=== PATIENT | female | born 1965 | race Caucasian/White ===

== ENCOUNTER 2016-03-31 19:55 | Inpatient (IN) | payer MEDICARE, OTHER ==
[2016-03-31 20:26] VITALS: BP 136/94
[2016-03-31] MEDS: Sodium Chloride 0.9% 1,000 ML IV SCH (21:55)
[2016-03-31] MEDS: HYDROmorphone 1 mg/mL 1mL Syr IVP PRN (21:55)
[2016-04-01] MEDS: HYDROmorphone 1 mg/mL 1mL Syr IVP PRN ×4 (06:18→20:43)
[2016-04-01 07:08] LABS: % BASOPHILS 0.4 % (0.0-2.0); % EOSINOPHILS 0.5 % (0.0-5.0); % LYMPHOCYTES 21.1 % (20.0-50.0); % MONOCYTES 2.6 % (2.0-10.0); % NEUTROPHILS 75.4 % (40.0-80.0); HEMATOCRIT 39.2 % (35.0-45.0); HEMOGLOBIN 13.3 gm/dL (11.7-15.5); MEAN CELL VOLUME 82.9 fl (81-100); MEAN CORPUSCULAR HEMOGLOBIN 28.2 pg (27.0-31.0); MEAN PLATELET VOLUME 8.3 fl; PLATELET COUNT 250 Th/cmm (150-400); RED BLOOD COUNT 4.73 Mil/cmm (3.80-5.10); RED CELL DISTRIBUTION WIDTH 12.9 % (11.5-20.0); WHITE BLOOD COUNT 14.7 Th/cmm (4.8-10.8)
[2016-04-01 07:25] LABS: INR 1.05 (0.5-1.4); PROTHROMBIN TIME (TEST) 10.4 SECONDS (9.5-11.5)
[2016-04-01 07:34] LABS: ALB/GLOB RATIO 1.1 (1.0-1.8); ALKALINE PHOSPHATASE 167 U/L (34-104); ANION GAP 11.7 (7.0-16.0); BILIRUBIN,TOTAL 0.6 mg/dL (0.3-1.0); BUN - UREA NITROGEN 12 mg/dL (7-25); BUN/CREATININE RATIO 17.1; CALCIUM SERUM 8.5 mg/dL (8.6-10.3); CARBON DIOXIDE 27.6 mEq/L (21.0-31.0); CHLORIDE 99 mEq/L (98-107); CREATININE - SERUM 0.7 mg/dL (0.6-1.2); GLUCOSE 169 mg/dL (70-105); POTASSIUM SERUM 3.3 mEq/L (3.5-5.1); SGOT 137 U/L (13-39); SGPT/ALT 129 U/L (7-52); SODIUM SERUM 135 mEq/L (136-145)
[2016-04-01] MEDS: Sodium Chloride 0.9% 1,000 ML IV SCH ×2 (08:27→21:30)
[2016-04-01] MEDS ORDERED: Influenza Vaccine 0.5 mL Syr IM ONE (09:00)
--- NOTE | 2016-04-01 09:00 | General Progress Note ---
Subjective - Review of Systems Service Date: 04/01/16 Subjective: I have pain Objective - Results Result Diagrams: 04/01/16 06:50 04/01/16 06:50 Recent Labs: Laboratory Last Values WBC 14.7 Th/cmm (4.8-10.8) H 04/01/16 06:50 RBC 4.73 Mil/cmm (3.80-5.10) 04/01/16 06:50 Hgb 13.3 gm/dL (11.7-15.5) 04/01/16 06:50 Hct 39.2 % (35.0-45.0) 04/01/16 06:50 MCV 82.9 fl (81-100) 04/01/16 06:50 MCH 28.2 pg (27.0-31.0) 04/01/16 06:50 MCHC Differential 34.0 pg (28.0-36.0) 04/01/16 06:50 RDW 12.9 % (11.5-20.0) 04/01/16 06:50 Plt Count 250 Th/cmm (150-400) 04/01/16 06:50 MPV 8.3 fl 04/01/16 06:50 Neutrophils % 75.4 % (40.0-80.0) 04/01/16 06:50 Lymphocytes % 21.1 % (20.0-50.0) 04/01/16 06:50 Monocytes % 2.6 % (2.0-10.0) 04/01/16 06:50 Eosinophils % 0.5 % (0.0-5.0) 04/01/16 06:50 Basophils % 0.4 % (0.0-2.0) 04/01/16 06:50 PT 10.4 SECONDS (9.5-11.5) 04/01/16 06:50 INR 1.05 (0.5-1.4) 04/01/16 06:50 PTT (Actin FS) 29.2 SECONDS (26.0-38.0) 04/01/16 06:50 Sodium 135 mEq/L (136-145) L 04/01/16 06:50 Potassium 3.3 mEq/L (3.5-5.1) L 04/01/16 06:50 Chloride 99 mEq/L (98-107) 04/01/16 06:50 Carbon Dioxide 27.6 mEq/L (21.0-31.0) 04/01/16 06:50 Anion Gap 11.7 (7.0-16.0) 04/01/16 06:50 BUN 12 mg/dL (7-25) 04/01/16 06:50 Creatinine 0.7 mg/dL (0.6-1.2) 04/01/16 06:50 Est GFR ( Amer) > 60.0 ml/min 04/01/16 06:50 Est GFR (Non-Af Amer) > 60.0 ml/min 04/01/16 06:50 BUN/Creatinine Ratio 17.1 04/01/16 06:50 Glucose 169 mg/dL (70-105) H 04/01/16 06:50 POC Glucose 184 MG/DL (70 - 105) H 04/01/16 07:25 Calcium 8.5 mg/dL (8.6-10.3) L 04/01/16 06:50 Total Bilirubin 0.6 mg/dL (0.3-1.0) 04/01/16 06:50 AST 137 U/L (13-39) H 04/01/16 06:50 ALT 129 U/L (7-52) H 04/01/16 06:50 Alkaline Phosphatase 167 U/L (34-104) H 04/01/16 06:50 Total Protein 6.9 gm/dL (6.0-8.3) 04/01/16 06:50 Albumin 3.6 gm/dL (3.7-5.3) L 04/01/16 06:50 Globulin 3.3 gm/dL 04/01/16 06:50 Albumin/Globulin Ratio 1.1 (1.0-1.8) 04/01/16 06:50 Amylase 10 U/L (29-103) L 04/01/16 06:50 Lipase 20 U/L (11-82) 04/01/16 06:50 - Physical Exam Vitals and I&O: Vital Signs Temp 97.2 F 03/31/16 20:30 Pulse 94 03/31/16 20:30 Resp 20 03/31/16 20:30 BP 130/100 03/31/16 20:30 Pulse Ox 97 03/31/16 20:30 Intake & Output 03/31/16 04/01/16 04/01/16 18:59 06:59 18:59 Intake Total 50 Balance 50 Weight (lbs) 136.078 kg Intake: Intake, IV Amount 50 cefTRIAXone 1 gm In 50 Dextrose 5% 50 ml @ 100 mls/hr IV Q24H [facility] Rx#: [id number] Active Medications: Current Medications Hydromorphone HCl (Dilaudid) 1 mg IVP Q4HR PRN PRN Reason: Pain (Severe) Stop: 05/30/16 20:44 Last Admin: 04/01/16 06:18 Dose: 1 mg Sodium Chloride (Nacl 0.9%) 1,000 mls @ 100 mls/hr IV .Q10H [facility] Stop: 05/30/16 20:44 Last Admin: 04/01/16 08:27 Dose: Not Given Ceftriaxone Sodium 1 gm/ (Dextrose) 50 mls @ 100 mls/hr IV Q24H [facility] Stop: 05/30/16 21:29 Last Infusion: 03/31/16 23:53 Dose: Infused Influenza Virus Vaccine (Fluarix) 0.5 ml IM .ONCE ONE Stop: 04/01/16 09:01 General: Alert, Oriented x3, No acute distress HEENT: Atraumatic Neck: Supple Cardiovascular: Regular rate Lungs: Clear to auscultation Abdomen: Bowel sounds, Tender, Other (Pain in upper right quadrant) Neurological: Normal gait Skin: Other (Warm and dry) Psych/Mental Status: Mental status NL Assessment/Plan - Assessment Assessment: Patient is awake, alert, calm, referring pain in right upper abdomen. - Plan Plan: Patient is scheduled for ERCP today. Will continue monitoring.
--- NOTE | 2016-04-01 10:23 | History & Physical ---
CHIEF COMPLAINT: Left upper abdominal pain. HISTORY OF PRESENT ILLNESS: This is the case of a 50-year-old white female who reported yesterday she woke up with intense pain in the abdomen, right upper quadrant. Due to that, the patient went to [facility], and the patient was transferred to this hospital in order to continue treatment. SOCIAL HISTORY: The patient lives at home with parents. She denies use of alcohol or drugs, no smoking. PAST MEDICAL HISTORY: The patient referred she has depression. PAST SURGICAL HISTORY: The patient referred that she has had multiple surgeries, gastric bypass 7 years ago, cholecystectomy 5 years ago, and they had to put a tube for ____ in order to drainage to ____. Tube was taken off 6 months ago. The patient had 3 C-sections and she had an abdominal surgery 4 years ago secondary to repair problems from cholecystectomy. FAMILY HISTORY: Cancer in both father and mother. MEDICATIONS: Cymbalta. ALLERGIES: THE PATIENT REFERRED BEING ALLERGIC TO SULFA. REVIEW OF SYSTEMS: LUNGS: The patient denies shortness of breath. HEART: The patient denies chest pain. ABDOMEN: The patient referred upper right abdominal pain. EXTREMITIES: No edema. PHYSICAL EXAMINATION: GENERAL: Does reveal a fairly nourished and developed white female, awake, alert, in no acute distress at this moment. HEENT: Head is normocephalic and atraumatic. EYES: Pupils are reactive to light. Nose: No evidence of nasal obstruction. Ears: No evidence of any discharge. Mouth: Fairly ____. LUNGS: Bilateral air entry. No wheezing or crackles. HEART: Regular rate and rhythm. ABDOMEN: Soft and tender on palpation in right upper quadrant. Bowel sounds present. EXTREMITIES: No edema. Full movement of all extremities. NEUROLOGICAL: The patient is awake, alert, in no acute distress. Nerves 2-12 grossly intact. No neurological deficit at this moment. IMPRESSION: 1. Upper abdominal pain. 2. Obesity. 3. Depression. PLAN: 1. The patient will be admitted in medical surgical floor. 2. Consult with GI, Dr. Meek, for possible ERCP. 3. IV normal saline, n.p.o. 4. Continue home medications. 5. CBC, CMP at a.m. JOB# [id number]
[2016-04-01 10:41] LABS: URINE BILIRUBIN SMALL (NEGATIVE); URINE BLOOD TRACE (NEGATIVE); URINE COLOR YELLOW; URINE GLUCOSE (UA) NEGATIVE (NEGATIVE); URINE KETONE TRACE mg/dL (NEGATIVE); URINE PH 6.5; URINE PROTEIN 100 mg/dL (NEGATIVE); URINE UROBILINOGEN 0.2 E.U./dL (0.2 - 1.0)
[2016-04-01 10:46] LABS: URINE EPITHELIAL CELLS MODERATE /lpf (FEW); URINE RBC 0-2 /hpf (0-5); URINE WBC 0-2 /hpf (0-5)
[2016-04-01 10:47] LABS: URINE BACTERIA FEW /hpf (NONE SEEN)
--- NOTE | 2016-04-01 11:09 | Diagnostic Imaging Report ---
Abdominal ultrasound HISTORY: Pain The exam is limited due to patient size, body habitus, and bowel gas. The liver exhibits a homogeneous parenchyma. No focal lesions. The gallbladder is not seen consistent with the patient's surgical history. No biliary dilatation. No abnormality seen in the region of the pancreas. The kidneys appear normal bilaterally. The spleen is normal in size. No other retroperitoneal or intra-abdominal abnormalities. IMPRESSION: 1. Nonvisualization of the gallbladder consistent with patient's surgical history 2. No other abnormalities
[2016-04-01] MEDS ORDERED: VTE Chemical Prophylaxis Screen/Admission MC PRN (17:14)
--- NOTE | 2016-04-01 21:31 | Admit Criteria Form ---
Admit Criteria Forms - Admit Criteria Diagnosis: ABDOMINAL PAIN Clinical Indications for Admission to Inpatient Care (Place 'X' for any and all applicable criteria): Admission is indicated for ANY ONE of the following(1)(2)(3)(4)(5): [ X]I. Inpatient admission required rather than observation care (Also use Abdominal Pain: Observation Care, as appropriate) because of ANY ONE of the following: [ ]a) Severe pain requiring acute inpatient management [ ]b) Identification of etiology/finding that requires inpatient care (eg, aortic dissection, free air) [ ]c) Absent bowel sounds with complete ileus(6) [ ]d) Suspected toxic megacolon [ ]e) Severe electrolyte abnormalities requiring inpatient care [ ]f) High fever or infection requiring inpatient admission as indicated by ANY ONE of following(7)(8): [ ] i) Appropriate outpatient or observational care antimicrobial treatment unavailable, not effective, or not feasible [ ] ii) Documented bacteremia [ ] iii) Temperature > 104.9 degrees F (oral) [ ] iv) T >103.1 F (oral) or < 96.8 F(rectal) that does not respond to all emergency treatment measures [ ]g) Signs of intestinal obstruction [B] [ ]h) Hemodynamic instability [ ]i) IV fluid to replace significant ongoing losses (greater than 3 L/m2 per day) (12)(13) [ ]j) Percutaneous or open drainage (eg, abscess, biliary tract ) procedures [ ]k) Parenteral nutrition regimen that must be implemented on inpatient basis [ X]l) Other condition,treatment or monitoring requiring inpatient admission. [ ]II. Peritoneal signs present [ ]III. Surgery needed that cannot be performed on an ambulatory basis. [ ]IV. Evaluation requires patient to not eat or drink for extended period ( eg, more than 24 hours). [ ]V. Contraindications and/or Inappropriate clinical situations for Observational Care in patients with abdominal pain, when ANY ONE of the following is required: [ ]a) Thorough evaluation is required to prevent catastrophic events due to delays in diagnosing (e.g.Mesenteric ischemia) 1,3 [ ]b) Patient with severe pathology or with chronic symptoms unlikely to improve in the ED stay (3) [ ]. General contraindications and/or Inappropriate clinical situations for Observational Care in patients with abdominal pain, when ANY ONE of the following is required: [ ]a) Prediction of prolongation of LOS based on ANY ONE of the following may be considered as a contraindication for observational care 2, 3, 4, 5, 6, 7, 8, 9, 10, 11 [ ]i) Age > 65 yrs. [ ]ii) Patient arriving by ambulance [ ]iii) Patient with high acuity [ ]iv) Patient requiring vital sign monitoring [ ]v) Patient on IV medication [ ]b) Systolic blood pressures 180mmHg 3,12 [ ]c) Patient with altered mental status including delirium and other alteration of consciousness, (3) [ ]d) Patient whose discharge disposition will be to a care home home or rehabilitation home should not be managed in Emergency Department Observation Unit. CMS rule requires 3 days hospital stay before such placement.3,13 [ ]e) Patient with failure to thrive due to broad array of etiologies 3,16,17 [ ]f) Inability to ambulate 3,14 Extended stay beyond goal length of stay may be needed for(2)(3): [ ]a) Persistent abdominal pain with suspected intra-abdominal process [ ]b) Diagnosed condition requiring continued stay (e.g., pancreatitis, complicated diverticulitis) [ ]c) Surgery (e.g., colectomy) The original [employer] content created by [employer] has been revised. The portions of the content which have been revised are identified through the use of italic text or in bold, and [facility] has neither reviewed nor approved the modified material.All other unmodified content is copyright [facility]. Please see references footnoted in the original [facility] edition 2016
--- NOTE | 2016-04-01 23:49 | Consultation ---
INPATIENT GI CONSULT REFERRING PHYSICIAN: Dr. Anguiano. REASON FOR CONSULTATION: Abdominal pain. HISTORY OF PRESENT ILLNESS: This is a 50-year-old female with abdominal pain of 1-day duration in the right upper quadrant associated with nausea and vomiting, but no hematemesis or coffee-ground emesis. Denies having any melena or hematochezia. She has had this pain before several years ago. Reminiscence of her gallstones required a gallbladder surgery. PAST MEDICAL HISTORY: Include gallstones. PAST SURGICAL HISTORY: Cholecystectomy and . FAMILY HISTORY: Her father had stomach cancer. SOCIAL HISTORY: She denies tobacco or IV drug usage. She drinks alcohol socially, but not heavy. ALLERGIES: SULFA. CURRENT MEDICATIONS: Ceftriaxone, Dilaudid, and normal saline. REVIEW OF SYSTEMS: Ten-point review of systems was performed and the pertinent positive was the abdominal pain, nausea, and vomiting. All the systems were otherwise negative. PHYSICAL EXAMINATION: VITAL SIGNS: Temperature is 97.2, breathing 18, pulse of 94, blood pressure 130/100, and satting 97%. GENERAL: In no apparent distress. HEENT: Eyes: Anicteric, normal conjunctivae. Head is normocephalic and atraumatic. Moist mucous membranes. NECK: Soft, supple. CHEST: Clear. Normal effort. CARDIOVASCULAR: Regular rate and rhythm. ABDOMEN: Soft, nontender, and nondistended, normal bowel sounds. SKIN: Warm and dry. EXTREMITIES: Reveal no cyanosis. PSYCHOLOGIC: Alert and oriented x 3. LABORATORY DATA: Show white count 14.7, hemoglobin 13.3, and platelets of 250,000. INR is 1.05. Total bilirubin 0.6, AST 137, ALT 129, alkaline phosphatase 167, and lipase 20. IMPRESSION: This is a 50-year-old female with right upper quadrant pain, nausea, and vomiting, cause could be from a retained stone, but on the other hand, it could be due to gastritis, peptic ulcer disease. Given that LFTs are elevated, the thought processes would lead more towards biliary process such as a retained stone. The patient does have a family history of stomach cancer, which I discussed with her and she should have an elective endoscopy for surveillance at some point, but after the acute issue with the abdominal pain and elevated LFTs have been resolved. She tells me also that she has a history of gastric bypass and because of this, ERCP approach would be difficult. Imaging studies to confirm the presence of the stone is essential as the first priority by way of MRCP. If there is a stone, she is likely need to be transferred to a tertiary center that can handle common bile duct stone removal in the setting of gastric bypass anatomy. She should also have at some point an elective endoscopy just to exclude any gastric cancer given her family history. PLAN: 1. MRCP. 2. Follow LFTs. 3. Based upon MRCP, may need an ERCP at a tertiary center. 4. They will need elective EGD for surveillance for screening of gastric cancer given the family history. This can be done as an outpatient in 1-2 months. Thank you for allowing me to participate. Please call me if you have any questions. [facility]# [phone]
[2016-04-02] MEDS: HYDROmorphone 1 mg/mL 1mL Syr IVP PRN ×6 (00:38→21:16)
[2016-04-02 07:17] LABS: % BASOPHILS 0.6 % (0.0-2.0); % EOSINOPHILS 0.6 % (0.0-5.0); % LYMPHOCYTES 18.1 % (20.0-50.0); % MONOCYTES 3.1 % (2.0-10.0); % NEUTROPHILS 77.6 % (40.0-80.0); HEMATOCRIT 37.8 % (35.0-45.0); HEMOGLOBIN 12.9 gm/dL (11.7-15.5); MEAN CORPUSCULAR HEMOGLOBIN 28.6 pg (27.0-31.0); MEAN PLATELET VOLUME 8.8 fl; NEUTROPHILE ABSOLUTE 8.7 Th/cmm (1.8-8.0); PLATELET COUNT 202 Th/cmm (150-400); RED BLOOD COUNT 4.51 Mil/cmm (3.80-5.10); RED CELL DISTRIBUTION WIDTH 13.1 % (11.5-20.0)
[2016-04-02 07:30] LABS: WHITE BLOOD COUNT 11.4 Th/cmm (4.8-10.8)
[2016-04-02 07:45] LABS: ALB/GLOB RATIO 1.1 (1.0-1.8); ALKALINE PHOSPHATASE 151 U/L (34-104); ANION GAP 9.5 (7.0-16.0); BILIRUBIN,TOTAL 0.6 mg/dL (0.3-1.0); BUN - UREA NITROGEN 13 mg/dL (7-25); BUN/CREATININE RATIO 18.6; CALCIUM SERUM 8.3 mg/dL (8.6-10.3); CARBON DIOXIDE 27.9 mEq/L (21.0-31.0); CHLORIDE 102 mEq/L (98-107); CREATININE - SERUM 0.7 mg/dL (0.6-1.2); GLUCOSE 134 mg/dL (70-105); POTASSIUM SERUM 3.4 mEq/L (3.5-5.1); SGOT 71 U/L (13-39); SGPT/ALT 89 U/L (7-52); SODIUM SERUM 136 mEq/L (136-145)
--- NOTE | 2016-04-02 08:40 | General Progress Note ---
Subjective - Review of Systems Service Date: 04/02/16 Subjective: I continue with pain Objective - Results Result Diagrams: 04/02/16 06:46 04/02/16 06:46 Recent Labs: Laboratory Last Values WBC 11.4 Th/cmm (4.8-10.8) H D 04/02/16 06:46 RBC 4.51 Mil/cmm (3.80-5.10) 04/02/16 06:46 Hgb 12.9 gm/dL (11.7-15.5) 04/02/16 06:46 Hct 37.8 % (35.0-45.0) 04/02/16 06:46 MCV 84.0 fl (81-100) 04/02/16 06:46 MCH 28.6 pg (27.0-31.0) 04/02/16 06:46 MCHC Differential 34.0 pg (28.0-36.0) 04/02/16 06:46 RDW 13.1 % (11.5-20.0) 04/02/16 06:46 Plt Count 202 Th/cmm (150-400) 04/02/16 06:46 MPV 8.8 fl 04/02/16 06:46 Neutrophils % 77.6 % (40.0-80.0) 04/02/16 06:46 Lymphocytes % 18.1 % (20.0-50.0) L 04/02/16 06:46 Monocytes % 3.1 % (2.0-10.0) 04/02/16 06:46 Eosinophils % 0.6 % (0.0-5.0) 04/02/16 06:46 Basophils % 0.6 % (0.0-2.0) 04/02/16 06:46 PT 10.4 SECONDS (9.5-11.5) 04/01/16 06:50 INR 1.05 (0.5-1.4) 04/01/16 06:50 PTT (Actin FS) 29.2 SECONDS (26.0-38.0) 04/01/16 06:50 Sodium 136 mEq/L (136-145) 04/02/16 06:46 Potassium 3.4 mEq/L (3.5-5.1) L 04/02/16 06:46 Chloride 102 mEq/L (98-107) 04/02/16 06:46 Carbon Dioxide 27.9 mEq/L (21.0-31.0) 04/02/16 06:46 Anion Gap 9.5 (7.0-16.0) 04/02/16 06:46 BUN 13 mg/dL (7-25) 04/02/16 06:46 Creatinine 0.7 mg/dL (0.6-1.2) 04/02/16 06:46 Est GFR ( Amer) > 60.0 ml/min 04/02/16 06:46 Est GFR (Non-Af Amer) > 60.0 ml/min 04/02/16 06:46 BUN/Creatinine Ratio 18.6 04/02/16 06:46 Glucose 134 mg/dL (70-105) H 04/02/16 06:46 POC Glucose 184 MG/DL (70 - 105) H 04/01/16 07:25 Calcium 8.3 mg/dL (8.6-10.3) L 04/02/16 06:46 Total Bilirubin 0.6 mg/dL (0.3-1.0) 04/02/16 06:46 AST 71 U/L (13-39) H 04/02/16 06:46 ALT 89 U/L (7-52) H 04/02/16 06:46 Alkaline Phosphatase 151 U/L (34-104) H 04/02/16 06:46 Total Protein 6.4 gm/dL (6.0-8.3) 04/02/16 06:46 Albumin 3.3 gm/dL (3.7-5.3) L 04/02/16 06:46 Globulin 3.1 gm/dL 04/02/16 06:46 Albumin/Globulin Ratio 1.1 (1.0-1.8) 04/02/16 06:46 Amylase 10 U/L (29-103) L 04/01/16 06:50 Lipase 20 U/L (11-82) 04/01/16 06:50 Urine Source CLEAN C 04/01/16 10:21 Urine Color YELLOW 04/01/16 10:21 Urine Clarity SL. CLOUDY (CLEAR) 04/01/16 10:21 Urine pH 6.5 04/01/16 10:21 Ur Specific [place] 1.015 (1.005-1.030) 04/01/16 10:21 Urine Protein 100 mg/dL (NEGATIVE) H 04/01/16 10:21 Urine Glucose (UA) NEGATIVE mg/dL (NEGATIVE) 04/01/16 10:21 Urine Ketones TRACE mg/dL (NEGATIVE) 04/01/16 10:21 Urine Blood TRACE (NEGATIVE) 04/01/16 10:21 Urine Nitrate NEGATIVE (NEGATIVE) 04/01/16 10:21 Urine Bilirubin SMALL (NEGATIVE) H 04/01/16 10:21 Urine Urobilinogen 0.2 E.U./dL (0.2 - 1.0) 04/01/16 10:21 Ur Leukocyte Esterase NEGATIVE (NEGATIVE) 04/01/16 10:21 Urine RBC 0-2 /hpf (0-5) 04/01/16 10:21 Urine WBC 0-2 /hpf (0-5) 04/01/16 10:21 Ur Epithelial Cells MODERATE /lpf (FEW) 04/01/16 10:21 Urine Bacteria FEW /hpf (NONE SEEN) 04/01/16 10:21 - Physical Exam Vitals and I&O: Vital Signs Temp 99.4 F 04/02/16 07:58 Pulse 108 04/02/16 07:58 Resp 20 04/02/16 07:58 BP 153/99 04/02/16 07:58 Pulse Ox 97 04/02/16 07:58 Intake & Output 04/01/16 04/02/16 04/02/16 18:59 06:59 18:59 Intake Total 1250 Output Total 350 Balance 900 Intake: Intake, IV Amount 1000 Sodium Chloride 0.9% 1, 1000 000 ml @ 100 mls/hr IV . Q10H [facility] Rx#:[id number] Oral 250 Output: Urine 350 Other: # Voids 3 Active Medications: Current Medications Duloxetine HCl (Cymbalta) 60 mg PO DAILY [facility]UAN PRN Reason: Protocol Stop: 06/01/16 08:59 Gabapentin (Neurontin) 600 mg PO BID [facility] Stop: 06/01/16 08:59 Heparin Sodium (Porcine) (Heparin) 5,000 units SUBQ Q12H [facility] Stop: 05/31/16 20:59 Last Admin: 04/01/16 20:44 Dose: Not Given Hydromorphone HCl (Dilaudid) 1 mg IVP Q4HR PRN PRN Reason: Pain (Severe) Stop: 05/30/16 20:44 Last Admin: 04/02/16 04:36 Dose: 1 mg Sodium Chloride (Nacl 0.9%) 1,000 mls @ 100 mls/hr IV .Q10H [facility] Stop: 05/30/16 20:44 Last Admin: 04/01/16 21:30 Dose: 100 mls/hr Ceftriaxone Sodium 1 gm/ (Dextrose) 50 mls @ 100 mls/hr IV Q24H [facility] Stop: 05/30/16 21:29 Last Admin: 04/01/16 20:44 Dose: 100 mls/hr Miscellaneous ([employer] Prophylaxis Screen/ Admission) 1 ea PRN PRN PRN Reason: PROTOCOL Stop: 05/31/16 17:13 Ondansetron HCl (Zofran) 4 mg IV Q6H PRN PRN Reason: Nausea / Vomiting Stop: 05/31/16 16:00 Last Admin: 04/01/16 16:23 Dose: 4 mg Potassium Chloride (Klor-Con) 20 meq PO DAILY [facility] Stop: 06/01/16 08:59 Propranolol HCl (Inderal) 10 mg PO BID [facility] Stop: 06/01/16 08:59 Zolpidem Tartrate (Ambien) 10 mg PO HS PRN PRN Reason: Insomnia Stop: 05/31/16 22:18 Last Admin: 04/01/16 23:21 Dose: 10 mg General: Alert, Oriented x3, No acute distress HEENT: Atraumatic Neck: Supple Cardiovascular: Regular rate Lungs: Clear to auscultation Abdomen: Bowel sounds, Soft (tender at palpation on right upper abdomen) Extremities: Other (No edema) Neurological: Normal gait Skin: Other ([place] and dry) Psych/Mental Status: Mental status NL Assessment/Plan - Assessment Assessment: Patient is awake, alert, calm, referring pain in right upper abdomen. CBC improving close to normal. Patient will be transfer to upper level of care. - Plan Plan: Patient will be transfer to upper level of care. Will continue monitoring.
[2016-04-02] MEDS: Sodium Chloride 0.9% 1,000 ML IV SCH ×2 (08:43→18:11)
[2016-04-02] MEDS: Potassium Chloride 20 mEq ER Tab PO SCH (09:09)
[2016-04-03] MEDS: HYDROmorphone 1 mg/mL 1mL Syr IVP PRN ×6 (01:46→21:16)
[2016-04-03] MEDS: Sodium Chloride 0.9% 1,000 ML IV SCH ×3 (02:53→23:29)
[2016-04-03 06:54] LABS: % EOSINOPHILS 0.7 % (0.0-5.0); % LYMPHOCYTES 23.5 % (20.0-50.0); % MONOCYTES 2.4 % (2.0-10.0); % NEUTROPHILS 72.4 % (40.0-80.0); HEMATOCRIT 40.4 % (35.0-45.0); HEMOGLOBIN 13.4 gm/dL (11.7-15.5); MEAN CELL VOLUME 84.4 fl (81-100); MEAN CORPUSCULAR HEMOGLOBIN 28.1 pg (27.0-31.0); MEAN CORPUSCULAR HGB CONC 33.3 pg (28.0-36.0); MEAN PLATELET VOLUME 8.7 fl; NEUTROPHILE ABSOLUTE 9.7 Th/cmm (1.8-8.0); RED BLOOD COUNT 4.78 Mil/cmm (3.80-5.10); RED CELL DISTRIBUTION WIDTH 12.6 % (11.5-20.0); WHITE BLOOD COUNT 13.3 Th/cmm (4.8-10.8)
[2016-04-03 07:04] LABS: PLATELET COUNT 258 Th/cmm (150-400)
[2016-04-03 07:25] LABS: ALB/GLOB RATIO 1.1 (1.0-1.8); ALKALINE PHOSPHATASE 141 U/L (34-104); ANION GAP 10.6 (7.0-16.0); BILIRUBIN,TOTAL 0.5 mg/dL (0.3-1.0); BUN - UREA NITROGEN 7 mg/dL (7-25); BUN/CREATININE RATIO 11.7; CALCIUM SERUM 8.5 mg/dL (8.6-10.3); CHLORIDE 103 mEq/L (98-107); CREATININE - SERUM 0.6 mg/dL (0.6-1.2); GLUCOSE 129 mg/dL (70-105); POTASSIUM SERUM 3.6 mEq/L (3.5-5.1); SGOT 50 U/L (13-39); SGPT/ALT 68 U/L (7-52); SODIUM SERUM 137 mEq/L (136-145)
[2016-04-03] MEDS: Potassium Chloride 20 mEq ER Tab PO SCH (08:36)
--- NOTE | 2016-04-03 11:07 | General Progress Note ---
Subjective - Review of Systems Service Date: 04/03/16 Subjective: I continue with pain Objective - Results Result Diagrams: 04/03/16 06:23 04/03/16 06:23 Recent Labs: Laboratory Last Values WBC 13.3 Th/cmm (4.8-10.8) H 04/03/16 06:23 RBC 4.78 Mil/cmm (3.80-5.10) 04/03/16 06:23 Hgb 13.4 gm/dL (11.7-15.5) 04/03/16 06:23 Hct 40.4 % (35.0-45.0) 04/03/16 06:23 MCV 84.4 fl (81-100) 04/03/16 06:23 MCH 28.1 pg (27.0-31.0) 04/03/16 06:23 MCHC Differential 33.3 pg (28.0-36.0) 04/03/16 06:23 RDW 12.6 % (11.5-20.0) 04/03/16 06:23 Plt Count 258 Th/cmm (150-400) D 04/03/16 06:23 MPV 8.7 fl 04/03/16 06:23 Neutrophils % 72.4 % (40.0-80.0) 04/03/16 06:23 Lymphocytes % 23.5 % (20.0-50.0) 04/03/16 06:23 Monocytes % 2.4 % (2.0-10.0) 04/03/16 06:23 Eosinophils % 0.7 % (0.0-5.0) 04/03/16 06:23 Basophils % 1.0 % (0.0-2.0) 04/03/16 06:23 PT 10.4 SECONDS (9.5-11.5) 04/01/16 06:50 INR 1.05 (0.5-1.4) 04/01/16 06:50 PTT (Actin FS) 29.2 SECONDS (26.0-38.0) 04/01/16 06:50 Sodium 137 mEq/L (136-145) 04/03/16 06:23 Potassium 3.6 mEq/L (3.5-5.1) 04/03/16 06:23 Chloride 103 mEq/L (98-107) 04/03/16 06:23 Carbon Dioxide 27.0 mEq/L (21.0-31.0) 04/03/16 06:23 Anion Gap 10.6 (7.0-16.0) 04/03/16 06:23 BUN 7 mg/dL (7-25) 04/03/16 06:23 Creatinine 0.6 mg/dL (0.6-1.2) 04/03/16 06:23 Est GFR ( Amer) > 60.0 ml/min 04/03/16 06:23 Est GFR (Non-Af Amer) > 60.0 ml/min 04/03/16 06:23 BUN/Creatinine Ratio 11.7 04/03/16 06:23 Glucose 129 mg/dL (70-105) H 04/03/16 06:23 POC Glucose 184 MG/DL (70 - 105) H 04/01/16 07:25 Calcium 8.5 mg/dL (8.6-10.3) L 04/03/16 06:23 Total Bilirubin 0.5 mg/dL (0.3-1.0) 04/03/16 06:23 AST 50 U/L (13-39) H 04/03/16 06:23 ALT 68 U/L (7-52) H 04/03/16 06:23 Alkaline Phosphatase 141 U/L (34-104) H 04/03/16 06:23 Total Protein 6.7 gm/dL (6.0-8.3) 04/03/16 06:23 Albumin 3.5 gm/dL (3.7-5.3) L 04/03/16 06:23 Globulin 3.2 gm/dL 04/03/16 06:23 Albumin/Globulin Ratio 1.1 (1.0-1.8) 04/03/16 06:23 Amylase 10 U/L (29-103) L 04/01/16 06:50 Lipase 20 U/L (11-82) 04/01/16 06:50 Urine Source CLEAN C 04/01/16 10:21 Urine Color YELLOW 04/01/16 10:21 Urine Clarity SL. CLOUDY (CLEAR) 04/01/16 10:21 Urine pH 6.5 04/01/16 10:21 Ur Specific [place] 1.015 (1.005-1.030) 04/01/16 10:21 Urine Protein 100 mg/dL (NEGATIVE) H 04/01/16 10:21 Urine Glucose (UA) NEGATIVE mg/dL (NEGATIVE) 04/01/16 10:21 Urine Ketones TRACE mg/dL (NEGATIVE) 04/01/16 10:21 Urine Blood TRACE (NEGATIVE) 04/01/16 10:21 Urine Nitrate NEGATIVE (NEGATIVE) 04/01/16 10:21 Urine Bilirubin SMALL (NEGATIVE) H 04/01/16 10:21 Urine Urobilinogen 0.2 E.U./dL (0.2 - 1.0) 04/01/16 10:21 Ur Leukocyte Esterase NEGATIVE (NEGATIVE) 04/01/16 10:21 Urine RBC 0-2 /hpf (0-5) 04/01/16 10:21 Urine WBC 0-2 /hpf (0-5) 04/01/16 10:21 Ur Epithelial Cells MODERATE /lpf (FEW) 04/01/16 10:21 Urine Bacteria FEW /hpf (NONE SEEN) 04/01/16 10:21 - Physical Exam Vitals and I&O: Vital Signs Temp 97.2 F 04/03/16 08:03 Pulse 89 04/03/16 08:36 Resp 20 04/03/16 08:03 BP 152/98 04/03/16 08:36 Pulse Ox 9 04/03/16 08:03 Intake & Output 04/02/16 04/03/16 04/03/16 18:59 06:59 18:59 Intake Total 3500 1710 Balance 3500 1710 Intake: Intake, IV Amount 1999 870 Sodium Chloride 0.9% 1999 870 000 ml @ 100 mls/hr IV . Q10H [facility] Rx#:[id number] Oral 1500 840 Other: # Voids 4 2 # Bowel Movements 0 Stool Characteristics Liquid Liquid Active Medications: Current Medications Buspirone HCl (Buspar) 5 mg PO BID YUAN PRN Reason: Protocol Stop: 06/02/16 10:59 Duloxetine HCl (Cymbalta) 60 mg PO DAILY YUAN PRN Reason: Protocol Stop: 06/01/16 08:59 Gabapentin (Neurontin) 600 mg PO BID YUAN Stop: 06/01/16 08:59 Last Admin: 04/03/16 08:36 Dose: 600 mg Heparin Sodium (Porcine) (Heparin) 5,000 units SUBQ Q12H [facility] Stop: 05/31/16 20:59 Last Admin: 04/03/16 08:36 Dose: 5,000 units Hydromorphone HCl (Dilaudid) 1 mg IVP Q4HR PRN PRN Reason: Pain (Severe) Stop: 05/30/16 20:44 Last Admin: 04/03/16 10:01 Dose: 1 mg Sodium Chloride (Nacl 0.9%) 1,000 mls @ 100 mls/hr IV .Q10H [facility] Stop: 05/30/16 20:44 Last Admin: 04/03/16 02:53 Dose: 100 mls/hr Ceftriaxone Sodium 1 gm/ (Dextrose) 50 mls @ 100 mls/hr IV Q24H [facility] Stop: 05/30/16 21:29 Last Admin: 04/02/16 21:17 Dose: 100 mls/hr Metronidazole (Flagyl) 500 mg PO TID [facility] Stop: 06/02/16 13:59 Miscellaneous (Vte Chemical Prophylaxis Screen/ Admission) 1 ea [facility] PRN PRN PRN Reason: PROTOCOL Stop: 05/31/16 17:13 Ondansetron HCl (Zofran) 4 mg IV Q6H PRN PRN Reason: Nausea / Vomiting Stop: 05/31/16 16:00 Last Admin: 04/01/16 16:23 Dose: 4 mg Potassium Chloride (Klor-Con) 20 meq PO DAILY [facility] Stop: 06/01/16 08:59 Last Admin: 04/03/16 08:36 Dose: 20 meq Propranolol HCl (Inderal) 40 mg PO BID [facility] Stop: 06/02/16 10:58 Zolpidem Tartrate (Ambien) 10 mg PO HS PRN PRN Reason: Insomnia Stop: 05/31/16 22:18 Last Admin: 04/02/16 21:33 Dose: 10 mg General: Alert, Oriented x3, Cooperative HEENT: Atraumatic Neck: Supple Cardiovascular: Regular rate Lungs: Clear to auscultation Abdomen: Bowel sounds, Soft, Other (Pain in right upper abdomen) Extremities: Other (No edema) Neurological: Normal gait Skin: Other (Warm and dry) Psych/Mental Status: Mental status NL Assessment/Plan - Assessment Assessment: Patient is awake, alert, calm, referring pain in right upper abdomen. CBC increased today. Metronidazole is added. Patient will be transfer to upper level of care. - Plan Plan: Propranolol increased. Patient will be transfer to upper level of care. Will continue monitoring.
[2016-04-04] MEDS: HYDROmorphone 1 mg/mL 1mL Syr IVP PRN ×6 (01:16→22:19)
[2016-04-04 06:35] LABS: % BASOPHILS 0.7 % (0.0-2.0); % EOSINOPHILS 0.8 % (0.0-5.0); % MONOCYTES 2.8 % (2.0-10.0); % NEUTROPHILS 75.7 % (40.0-80.0); HEMATOCRIT 39.1 % (35.0-45.0); HEMOGLOBIN 13.2 gm/dL (11.7-15.5); MEAN CORPUSCULAR HEMOGLOBIN 28.4 pg (27.0-31.0); MEAN CORPUSCULAR HGB CONC 33.9 pg (28.0-36.0); MEAN PLATELET VOLUME 8.7 fl; PLATELET COUNT 224 Th/cmm (150-400); RED BLOOD COUNT 4.66 Mil/cmm (3.80-5.10); RED CELL DISTRIBUTION WIDTH 12.6 % (11.5-20.0); WHITE BLOOD COUNT 12.3 Th/cmm (4.8-10.8)
[2016-04-04 06:36] LABS: NEUTROPHILE ABSOLUTE 9.3 Th/cmm (1.8-8.0)
[2016-04-04 07:10] LABS: ALB/GLOB RATIO 1.1 (1.0-1.8); ANION GAP 8.4 (7.0-16.0); BILIRUBIN,TOTAL 0.5 mg/dL (0.3-1.0); BUN - UREA NITROGEN 5 mg/dL (7-25); BUN/CREATININE RATIO 8.3; CALCIUM SERUM 8.7 mg/dL (8.6-10.3); CHLORIDE 104 mEq/L (98-107); CREATININE - SERUM 0.6 mg/dL (0.6-1.2); GLUCOSE 131 mg/dL (70-105); POTASSIUM SERUM 3.4 mEq/L (3.5-5.1); SODIUM SERUM 137 mEq/L (136-145)
[2016-04-04 07:11] LABS: ALKALINE PHOSPHATASE 125 U/L (34-104); SGOT 39 U/L (13-39); SGPT/ALT 51 U/L (7-52)
--- NOTE | 2016-04-04 08:57 | General Progress Note ---
Subjective - Review of Systems Service Date: 04/04/16 Subjective: I continue with pain Objective - Results Result Diagrams: 04/04/16 05:30 04/04/16 05:30 Recent Labs: Laboratory Last Values WBC 12.3 Th/cmm (4.8-10.8) H 04/04/16 05:30 RBC 4.66 Mil/cmm (3.80-5.10) 04/04/16 05:30 Hgb 13.2 gm/dL (11.7-15.5) 04/04/16 05:30 Hct 39.1 % (35.0-45.0) 04/04/16 05:30 MCV 84.0 fl (81-100) 04/04/16 05:30 MCH 28.4 pg (27.0-31.0) 04/04/16 05:30 MCHC Differential 33.9 pg (28.0-36.0) 04/04/16 05:30 RDW 12.6 % (11.5-20.0) 04/04/16 05:30 Plt Count 224 Th/cmm (150-400) 04/04/16 05:30 MPV 8.7 fl 04/04/16 05:30 Neutrophils % 75.7 % (40.0-80.0) 04/04/16 05:30 Lymphocytes % 20.0 % (20.0-50.0) 04/04/16 05:30 Monocytes % 2.8 % (2.0-10.0) 04/04/16 05:30 Eosinophils % 0.8 % (0.0-5.0) 04/04/16 05:30 Basophils % 0.7 % (0.0-2.0) 04/04/16 05:30 PT 10.4 SECONDS (9.5-11.5) 04/01/16 06:50 INR 1.05 (0.5-1.4) 04/01/16 06:50 PTT (Actin FS) 29.2 SECONDS (26.0-38.0) 04/01/16 06:50 Sodium 137 mEq/L (136-145) 04/04/16 05:30 Potassium 3.4 mEq/L (3.5-5.1) L 04/04/16 05:30 Chloride 104 mEq/L (98-107) 04/04/16 05:30 Carbon Dioxide 28.0 mEq/L (21.0-31.0) 04/04/16 05:30 Anion Gap 8.4 (7.0-16.0) 04/04/16 05:30 BUN 5 mg/dL (7-25) L 04/04/16 05:30 Creatinine 0.6 mg/dL (0.6-1.2) 04/04/16 05:30 Est GFR ( Amer) > 60.0 ml/min 04/04/16 05:30 Est GFR (Non-Af Amer) > 60.0 ml/min 04/04/16 05:30 BUN/Creatinine Ratio 8.3 04/04/16 05:30 Glucose 131 mg/dL (70-105) H 04/04/16 05:30 POC Glucose 184 MG/DL (70 - 105) H 04/01/16 07:25 Calcium 8.7 mg/dL (8.6-10.3) 04/04/16 05:30 Total Bilirubin 0.5 mg/dL (0.3-1.0) 04/04/16 05:30 AST 39 U/L (13-39) 04/04/16 05:30 ALT 51 U/L (7-52) 04/04/16 05:30 Alkaline Phosphatase 125 U/L (34-104) H 04/04/16 05:30 Total Protein 6.5 gm/dL (6.0-8.3) 04/04/16 05:30 Albumin 3.4 gm/dL (3.7-5.3) L 04/04/16 05:30 Globulin 3.1 gm/dL 04/04/16 05:30 Albumin/Globulin Ratio 1.1 (1.0-1.8) 04/04/16 05:30 Amylase 10 U/L (29-103) L 04/01/16 06:50 Lipase 20 U/L (11-82) 04/01/16 06:50 Urine Source CLEAN C 04/01/16 10:21 Urine Color YELLOW 04/01/16 10:21 Urine Clarity SL. CLOUDY (CLEAR) 04/01/16 10:21 Urine pH 6.5 04/01/16 10:21 Ur Specific [place] 1.015 (1.005-1.030) 04/01/16 10:21 Urine Protein 100 mg/dL (NEGATIVE) H 04/01/16 10:21 Urine Glucose (UA) NEGATIVE mg/dL (NEGATIVE) 04/01/16 10:21 Urine Ketones TRACE mg/dL (NEGATIVE) 04/01/16 10:21 Urine Blood TRACE (NEGATIVE) 04/01/16 10:21 Urine Nitrate NEGATIVE (NEGATIVE) 04/01/16 10:21 Urine Bilirubin SMALL (NEGATIVE) H 04/01/16 10:21 Urine Urobilinogen 0.2 E.U./dL (0.2 - 1.0) 04/01/16 10:21 Ur Leukocyte Esterase NEGATIVE (NEGATIVE) 04/01/16 10:21 Urine RBC 0-2 /hpf (0-5) 04/01/16 10:21 Urine WBC 0-2 /hpf (0-5) 04/01/16 10:21 Ur Epithelial Cells MODERATE /lpf (FEW) 04/01/16 10:21 Urine Bacteria FEW /hpf (NONE SEEN) 04/01/16 10:21 - Physical Exam Vitals and I&O: Vital Signs Temp 97.6 F 04/04/16 04:00 Pulse 82 04/04/16 04:00 Resp 20 04/04/16 04:00 BP 170/98 04/04/16 04:00 Pulse Ox 96 04/04/16 04:00 Intake & Output 04/03/16 04/04/16 04/04/16 18:59 06:59 18:59 Intake Total 1999 2770 Balance 1999 2770 Intake: Intake, IV Amount 1999 Sodium Chloride 0.9% 1999 000 ml @ 100 mls/hr IV . Q10H [facility] Rx#:[id number] Oral 2770 Other: # Voids 2 # Bowel Movements 0 Stool Characteristics Liquid Active Medications: Current Medications Buspirone HCl (Buspar) 5 mg PO BID YUAN PRN Reason: Protocol Stop: 06/02/16 10:59 Last Admin: 04/03/16 16:13 Dose: 5 mg Duloxetine HCl (Cymbalta) 60 mg PO DAILY [facility]UAN PRN Reason: Protocol Stop: 06/01/16 08:59 Last Admin: 04/03/16 12:06 Dose: 60 mg Gabapentin (Neurontin) 600 mg PO BID [facility] Stop: 06/01/16 08:59 Last Admin: 04/03/16 16:13 Dose: 600 mg Heparin Sodium (Porcine) (Heparin) 5,000 units SUBQ Q12H [facility] Stop: 05/31/16 20:59 Last Admin: 04/03/16 21:52 Dose: 5,000 units Hydromorphone HCl (Dilaudid) 1 mg IVP Q4HR PRN PRN Reason: Pain (Severe) Stop: 05/30/16 20:44 Last Admin: 04/04/16 05:49 Dose: 1 mg Sodium Chloride (Nacl 0.9%) 1,000 mls @ 100 mls/hr IV .Q10H [facility] Stop: 05/30/16 20:44 Last Admin: 04/03/16 23:29 Dose: 100 mls/hr Ceftriaxone Sodium 1 gm/ (Dextrose) 50 mls @ 100 mls/hr IV Q24H [facility] Stop: 05/30/16 21:29 Last Admin: 04/03/16 21:16 Dose: 100 mls/hr Metronidazole (Flagyl) 500 mg PO TID [facility] Stop: 04/09/16 18:00 Last Admin: 04/03/16 21:52 Dose: 500 mg Miscellaneous (Vte Chemical Prophylaxis Screen/ Admission) 1 ea [facility] PRN PRN PRN Reason: PROTOCOL Stop: 05/31/16 17:13 Ondansetron HCl (Zofran) 4 mg IV Q6H PRN PRN Reason: Nausea / Vomiting Stop: 05/31/16 16:00 Last Admin: 04/04/16 06:09 Dose: 4 mg Potassium Chloride (Klor-Con) 20 meq PO DAILY [facility] Stop: 06/01/16 08:59 Last Admin: 04/03/16 08:36 Dose: 20 meq Propranolol HCl (Inderal) 40 mg PO BID [facility] Stop: 06/02/16 10:58 Last Admin: 04/03/16 16:11 Dose: 40 mg Zolpidem Tartrate (Ambien) 10 mg PO HS PRN PRN Reason: Insomnia Stop: 05/31/16 22:18 Last Admin: 04/03/16 21:51 Dose: 10 mg General: Alert, Oriented x3, Cooperative HEENT: Atraumatic Neck: Supple, JVD Cardiovascular: Regular rate Lungs: Clear to auscultation Abdomen: Bowel sounds, Soft, Other (Pain at palpation in right upper abdomen. ) Neurological: Normal gait Skin: Other (Warm and dry) Psych/Mental Status: Mental status NL Assessment/Plan - Assessment Assessment: Patient is awake, alert, calm, referring pain in right upper abdomen. CBC improving, liver enzimes normal. Labs improving. BP not in control. Patient will be transfer to upper level of care. - Plan Plan: amlodipine is added to treatment. Patient will be transfer to upper level of care. Will continue monitoring.
[2016-04-04] MEDS: Potassium Chloride 20 mEq ER Tab PO SCH (10:03)
[2016-04-04] MEDS: Sodium Chloride 0.9% 1,000 ML IV SCH (20:58)
[2016-04-05] MEDS: HYDROmorphone 1 mg/mL 1mL Syr IVP PRN ×6 (02:12→22:38)
[2016-04-05] MEDS: Sodium Chloride 0.9% 1,000 ML IV SCH (07:37)
--- NOTE | 2016-04-05 08:22 | General Progress Note ---
Subjective - Review of Systems Service Date: 04/05/16 Subjective: Pain comes and goes Objective - Results Result Diagrams: 04/04/16 05:30 04/04/16 05:30 Recent Labs: Laboratory Last Values WBC 12.3 Th/cmm (4.8-10.8) H 04/04/16 05:30 RBC 4.66 Mil/cmm (3.80-5.10) 04/04/16 05:30 Hgb 13.2 gm/dL (11.7-15.5) 04/04/16 05:30 Hct 39.1 % (35.0-45.0) 04/04/16 05:30 MCV 84.0 fl (81-100) 04/04/16 05:30 MCH 28.4 pg (27.0-31.0) 04/04/16 05:30 MCHC Differential 33.9 pg (28.0-36.0) 04/04/16 05:30 RDW 12.6 % (11.5-20.0) 04/04/16 05:30 Plt Count 224 Th/cmm (150-400) 04/04/16 05:30 MPV 8.7 fl 04/04/16 05:30 Neutrophils % 75.7 % (40.0-80.0) 04/04/16 05:30 Lymphocytes % 20.0 % (20.0-50.0) 04/04/16 05:30 Monocytes % 2.8 % (2.0-10.0) 04/04/16 05:30 Eosinophils % 0.8 % (0.0-5.0) 04/04/16 05:30 Basophils % 0.7 % (0.0-2.0) 04/04/16 05:30 PT 10.4 SECONDS (9.5-11.5) 04/01/16 06:50 INR 1.05 (0.5-1.4) 04/01/16 06:50 PTT (Actin FS) 29.2 SECONDS (26.0-38.0) 04/01/16 06:50 Sodium 137 mEq/L (136-145) 04/04/16 05:30 Potassium 3.4 mEq/L (3.5-5.1) L 04/04/16 05:30 Chloride 104 mEq/L (98-107) 04/04/16 05:30 Carbon Dioxide 28.0 mEq/L (21.0-31.0) 04/04/16 05:30 Anion Gap 8.4 (7.0-16.0) 04/04/16 05:30 BUN 5 mg/dL (7-25) L 04/04/16 05:30 Creatinine 0.6 mg/dL (0.6-1.2) 04/04/16 05:30 Est GFR ( Amer) > 60.0 ml/min 04/04/16 05:30 Est GFR (Non-Af Amer) > 60.0 ml/min 04/04/16 05:30 BUN/Creatinine Ratio 8.3 04/04/16 05:30 Glucose 131 mg/dL (70-105) H 04/04/16 05:30 POC Glucose 135 MG/DL (70 - 105) H 04/04/16 12:13 Calcium 8.7 mg/dL (8.6-10.3) 04/04/16 05:30 Total Bilirubin 0.5 mg/dL (0.3-1.0) 04/04/16 05:30 AST 39 U/L (13-39) 04/04/16 05:30 ALT 51 U/L (7-52) 04/04/16 05:30 Alkaline Phosphatase 125 U/L (34-104) H 04/04/16 05:30 Total Protein 6.5 gm/dL (6.0-8.3) 04/04/16 05:30 Albumin 3.4 gm/dL (3.7-5.3) L 04/04/16 05:30 Globulin 3.1 gm/dL 04/04/16 05:30 Albumin/Globulin Ratio 1.1 (1.0-1.8) 04/04/16 05:30 Amylase 10 U/L (29-103) L 04/01/16 06:50 Lipase 20 U/L (11-82) 04/01/16 06:50 Urine Source CLEAN C 04/01/16 10:21 Urine Color YELLOW 04/01/16 10:21 Urine Clarity SL. CLOUDY (CLEAR) 04/01/16 10:21 Urine pH 6.5 04/01/16 10:21 Ur Specific [place] 1.015 (1.005-1.030) 04/01/16 10:21 Urine Protein 100 mg/dL (NEGATIVE) H 04/01/16 10:21 Urine Glucose (UA) NEGATIVE mg/dL (NEGATIVE) 04/01/16 10:21 Urine Ketones TRACE mg/dL (NEGATIVE) 04/01/16 10:21 Urine Blood TRACE (NEGATIVE) 04/01/16 10:21 Urine Nitrate NEGATIVE (NEGATIVE) 04/01/16 10:21 Urine Bilirubin SMALL (NEGATIVE) H 04/01/16 10:21 Urine Urobilinogen 0.2 E.U./dL (0.2 - 1.0) 04/01/16 10:21 Ur Leukocyte Esterase NEGATIVE (NEGATIVE) 04/01/16 10:21 Urine RBC 0-2 /hpf (0-5) 04/01/16 10:21 Urine WBC 0-2 /hpf (0-5) 04/01/16 10:21 Ur Epithelial Cells MODERATE /lpf (FEW) 04/01/16 10:21 Urine Bacteria FEW /hpf (NONE SEEN) 04/01/16 10:21 - Physical Exam Vitals and I&O: Vital Signs Temp 97.6 F 04/05/16 04:00 Pulse 79 04/05/16 04:00 Resp 17 04/05/16 04:00 BP 136/91 04/05/16 04:00 Pulse Ox 98 04/05/16 04:00 Intake & Output 04/04/16 04/05/16 04/05/16 18:59 06:59 18:59 Intake Total 1000 1000 Output Total 800 Balance 200 1000 Intake: Intake, IV Amount 1000 1000 Sodium Chloride 0.9% 1, 1000 1000 000 ml @ 100 mls/hr IV . Q10H [facility] Rx#:[id number] Output: Urine 800 Other: # Voids 5 # Bowel Movements 0 Stool Characteristics Soft Active Medications: Current Medications Amlodipine Besylate (Norvasc) 5 mg PO DAILY [facility] Stop: 06/03/16 08:59 Last Admin: 04/04/16 18:14 Dose: 5 mg Buspirone HCl (Buspar) 5 mg PO BID YUAN PRN Reason: Protocol Stop: 06/02/16 10:59 Last Admin: 04/04/16 18:37 Dose: 5 mg Duloxetine HCl (Cymbalta) 60 mg PO DAILY [facility]AN PRN Reason: Protocol Stop: 06/01/16 08:59 Last Admin: 04/04/16 18:24 Dose: 60 mg Gabapentin (Neurontin) 600 mg PO BID [facility] Stop: 06/01/16 08:59 Last Admin: 04/04/16 18:36 Dose: 600 mg Heparin Sodium (Porcine) (Heparin) 5,000 units SUBQ Q12H [facility] Stop: 05/31/16 20:59 Last Admin: 04/04/16 20:58 Dose: 5,000 units Hydromorphone HCl (Dilaudid) 1 mg IVP Q4HR PRN PRN Reason: Pain (Severe) Stop: 05/30/16 20:44 Last Admin: 04/05/16 06:16 Dose: 1 mg Sodium Chloride (Nacl 0.9%) 1,000 mls @ 100 mls/hr IV .Q10H [facility] Stop: 05/30/16 20:44 Last Admin: 04/05/16 07:37 Dose: 100 mls/hr Ceftriaxone Sodium 1 gm/ (Dextrose) 50 mls @ 100 mls/hr IV Q24H [facility] Stop: 05/30/16 21:29 Last Admin: 04/04/16 21:08 Dose: 100 mls/hr Metronidazole (Flagyl) 500 mg PO TID [facility] Stop: 04/09/16 18:00 Last Admin: 04/04/16 20:58 Dose: 500 mg Miscellaneous (Vte Chemical Prophylaxis Screen/ Admission) 1 ea [facility] PRN PRN PRN Reason: PROTOCOL Stop: 05/31/16 17:13 Ondansetron HCl (Zofran) 4 mg IV Q6H PRN PRN Reason: Nausea / Vomiting Stop: 05/31/16 16:00 Last Admin: 04/05/16 03:02 Dose: 4 mg Potassium Chloride (Klor-Con) 20 meq PO DAILY [facility] Stop: 06/01/16 08:59 Last Admin: 04/04/16 10:03 Dose: 20 meq Propranolol HCl (Inderal) 40 mg PO BID [facility] Stop: 06/02/16 10:58 Last Admin: 04/04/16 09:58 Dose: 40 mg Zolpidem Tartrate (Ambien) 10 mg PO HS PRN PRN Reason: Insomnia Stop: 05/31/16 22:18 Last Admin: 04/04/16 20:58 Dose: 10 mg General: Alert, Oriented x3, Cooperative, No acute distress HEENT: Atraumatic Neck: Supple Lungs: Clear to auscultation Abdomen: Bowel sounds, Soft, Other (Tender at palpation in right upper abdomen.) Extremities: Other (No edema) Neurological: Normal gait Skin: Other (Warm and dry) Psych/Mental Status: Mental status NL Assessment/Plan - Assessment Assessment: Patient is awake, alert, calm, referring pain in right upper abdomen. Labs not ready yet. BP improving. Patient will be transfer to upper level of care. - Plan Plan: amlodipine is added to treatment. Patient will be transfer to upper level of care. Will continue monitoring.
[2016-04-05] MEDS: Potassium Chloride 20 mEq ER Tab PO SCH (08:36)
[2016-04-05 09:31] LABS: % BASOPHILS 0.7 % (0.0-2.0); % EOSINOPHILS 0.9 % (0.0-5.0); % MONOCYTES 2.2 % (2.0-10.0); % NEUTROPHILS 78.2 % (40.0-80.0); HEMATOCRIT 38.9 % (35.0-45.0); HEMOGLOBIN 13.1 gm/dL (11.7-15.5); MEAN CELL VOLUME 83.7 fl (81-100); MEAN CORPUSCULAR HEMOGLOBIN 28.2 pg (27.0-31.0); MEAN CORPUSCULAR HGB CONC 33.8 pg (28.0-36.0); MEAN PLATELET VOLUME 8.6 fl; NEUTROPHILE ABSOLUTE 10.2 Th/cmm (1.8-8.0); PLATELET COUNT 217 Th/cmm (150-400); RED BLOOD COUNT 4.65 Mil/cmm (3.80-5.10); RED CELL DISTRIBUTION WIDTH 12.7 % (11.5-20.0)
[2016-04-05 09:50] LABS: ALB/GLOB RATIO 1.1 (1.0-1.8); ALKALINE PHOSPHATASE 104 U/L (34-104); ANION GAP 9.1 (7.0-16.0); BILIRUBIN,TOTAL 0.4 mg/dL (0.3-1.0); BUN - UREA NITROGEN 4 mg/dL (7-25); BUN/CREATININE RATIO 5.7; CALCIUM SERUM 8.6 mg/dL (8.6-10.3); CARBON DIOXIDE 27.8 mEq/L (21.0-31.0); CHLORIDE 102 mEq/L (98-107); CREATININE - SERUM 0.7 mg/dL (0.6-1.2); GLUCOSE 143 mg/dL (70-105); POTASSIUM SERUM 3.9 mEq/L (3.5-5.1); SGOT 28 U/L (13-39); SGPT/ALT 36 U/L (7-52); SODIUM SERUM 135 mEq/L (136-145)
[2016-04-06] MEDS: HYDROmorphone 1 mg/mL 1mL Syr IVP PRN ×3 (03:32→12:13)
[2016-04-06 07:47] LABS: % BASOPHILS 0.3 % (0.0-2.0); % EOSINOPHILS 1.4 % (0.0-5.0); % LYMPHOCYTES 19.7 % (20.0-50.0); % MONOCYTES 4.1 % (2.0-10.0); % NEUTROPHILS 74.5 % (40.0-80.0); HEMATOCRIT 39.3 % (35.0-45.0); HEMOGLOBIN 13.4 gm/dL (11.7-15.5); MEAN CELL VOLUME 83.9 fl (81-100); MEAN CORPUSCULAR HEMOGLOBIN 28.7 pg (27.0-31.0); MEAN CORPUSCULAR HGB CONC 34.2 pg (28.0-36.0); MEAN PLATELET VOLUME 9.4 fl; NEUTROPHILE ABSOLUTE 9.4 Th/cmm (1.8-8.0); PLATELET COUNT 214 Th/cmm (150-400); RED BLOOD COUNT 4.68 Mil/cmm (3.80-5.10); RED CELL DISTRIBUTION WIDTH 12.8 % (11.5-20.0); WHITE BLOOD COUNT 12.6 Th/cmm (4.8-10.8)
[2016-04-06] MEDS: Potassium Chloride 20 mEq ER Tab PO SCH (08:09)
[2016-04-06 08:41] LABS: ALB/GLOB RATIO 1.1 (1.0-1.8); ALKALINE PHOSPHATASE 95 U/L (34-104); BILIRUBIN,TOTAL 0.4 mg/dL (0.3-1.0); BUN - UREA NITROGEN 3 mg/dL (7-25); BUN/CREATININE RATIO 4.3; CALCIUM SERUM 8.7 mg/dL (8.6-10.3); CARBON DIOXIDE 28.8 mEq/L (21.0-31.0); CHLORIDE 105 mEq/L (98-107); CREATININE - SERUM 0.7 mg/dL (0.6-1.2); GLUCOSE 113 mg/dL (70-105); POTASSIUM SERUM 3.8 mEq/L (3.5-5.1); SGOT 24 U/L (13-39); SGPT/ALT 29 U/L (7-52); SODIUM SERUM 136 mEq/L (136-145)
--- NOTE | 2016-04-06 08:51 | General Progress Note ---
Subjective - Review of Systems Service Date: 04/06/16 Subjective: Pain comes and goes Objective - Results Result Diagrams: 04/06/16 06:35 04/05/16 09:00 Recent Labs: Laboratory Last Values WBC 12.6 Th/cmm (4.8-10.8) H 04/06/16 06:35 RBC 4.68 Mil/cmm (3.80-5.10) 04/06/16 06:35 Hgb 13.4 gm/dL (11.7-15.5) 04/06/16 06:35 Hct 39.3 % (35.0-45.0) 04/06/16 06:35 MCV 83.9 fl (81-100) 04/06/16 06:35 MCH 28.7 pg (27.0-31.0) 04/06/16 06:35 MCHC Differential 34.2 pg (28.0-36.0) 04/06/16 06:35 RDW 12.8 % (11.5-20.0) 04/06/16 06:35 Plt Count 214 Th/cmm (150-400) 04/06/16 06:35 MPV 9.4 fl 04/06/16 06:35 Neutrophils % 74.5 % (40.0-80.0) 04/06/16 06:35 Lymphocytes % 19.7 % (20.0-50.0) L 04/06/16 06:35 Monocytes % 4.1 % (2.0-10.0) 04/06/16 06:35 Eosinophils % 1.4 % (0.0-5.0) 04/06/16 06:35 Basophils % 0.3 % (0.0-2.0) 04/06/16 06:35 PT 10.4 SECONDS (9.5-11.5) 04/01/16 06:50 INR 1.05 (0.5-1.4) 04/01/16 06:50 PTT (Actin FS) 29.2 SECONDS (26.0-38.0) 04/01/16 06:50 Sodium 135 mEq/L (136-145) L 04/05/16 09:00 Potassium 3.9 mEq/L (3.5-5.1) 04/05/16 09:00 Chloride 102 mEq/L (98-107) 04/05/16 09:00 Carbon Dioxide 27.8 mEq/L (21.0-31.0) 04/05/16 09:00 Anion Gap 9.1 (7.0-16.0) 04/05/16 09:00 BUN 4 mg/dL (7-25) L 04/05/16 09:00 Creatinine 0.7 mg/dL (0.6-1.2) 04/05/16 09:00 Est GFR ( Amer) > 60.0 ml/min 04/05/16 09:00 Est GFR (Non-Af Amer) > 60.0 ml/min 04/05/16 09:00 BUN/Creatinine Ratio 5.7 04/05/16 09:00 Glucose 143 mg/dL (70-105) H 04/05/16 09:00 POC Glucose 135 MG/DL (70 - 105) H 04/04/16 12:13 Calcium 8.6 mg/dL (8.6-10.3) 04/05/16 09:00 Total Bilirubin 0.4 mg/dL (0.3-1.0) 04/05/16 09:00 AST 28 U/L (13-39) 04/05/16 09:00 ALT 36 U/L (7-52) 04/05/16 09:00 Alkaline Phosphatase 104 U/L (34-104) 04/05/16 09:00 Total Protein 6.4 gm/dL (6.0-8.3) 04/05/16 09:00 Albumin 3.4 gm/dL (3.7-5.3) L 04/05/16 09:00 Globulin 3.0 gm/dL 04/05/16 09:00 Albumin/Globulin Ratio 1.1 (1.0-1.8) 04/05/16 09:00 Amylase 10 U/L (29-103) L 04/01/16 06:50 Lipase 20 U/L (11-82) 04/01/16 06:50 Urine Source CLEAN C 04/01/16 10:21 Urine Color YELLOW 04/01/16 10:21 Urine Clarity SL. CLOUDY (CLEAR) 04/01/16 10:21 Urine pH 6.5 04/01/16 10:21 Ur Specific Gladys 1.015 (1.005-1.030) 04/01/16 10:21 Urine Protein 100 mg/dL (NEGATIVE) H 04/01/16 10:21 Urine Glucose (UA) NEGATIVE mg/dL (NEGATIVE) 04/01/16 10:21 Urine Ketones TRACE mg/dL (NEGATIVE) 04/01/16 10:21 Urine Blood TRACE (NEGATIVE) 04/01/16 10:21 Urine Nitrate NEGATIVE (NEGATIVE) 04/01/16 10:21 Urine Bilirubin SMALL (NEGATIVE) H 04/01/16 10:21 Urine Urobilinogen 0.2 E.U./dL (0.2 - 1.0) 04/01/16 10:21 Ur Leukocyte Esterase NEGATIVE (NEGATIVE) 04/01/16 10:21 Urine RBC 0-2 /hpf (0-5) 04/01/16 10:21 Urine WBC 0-2 /hpf (0-5) 04/01/16 10:21 Ur Epithelial Cells MODERATE /lpf (FEW) 04/01/16 10:21 Urine Bacteria FEW /hpf (NONE SEEN) 04/01/16 10:21 - Physical Exam Vitals and I&O: Vital Signs Temp 97.5 F 04/06/16 07:46 Pulse 72 04/06/16 08:12 Resp 20 04/06/16 07:46 BP 156/74 04/06/16 08:12 Pulse Ox 97 04/06/16 07:46 Intake & Output 04/05/16 04/06/16 04/06/16 18:59 06:59 18:59 Intake Total 1900 100 Output Total 650 Balance 1250 100 Intake: Intake, IV Amount 1000 Sodium Chloride 0.9% 1, 1000 000 ml @ 100 mls/hr IV . Q10H [facility] Rx#:[id number] Oral 900 100 Output: Urine 650 Other: # Voids 3 # Bowel Movements 1 Active Medications: Current Medications Amlodipine Besylate (Norvasc) 5 mg PO DAILY YUAN Stop: 06/03/16 08:59 Last Admin: 04/06/16 08:12 Dose: 5 mg Buspirone HCl (Buspar) 5 mg PO BID YUAN PRN Reason: Protocol Stop: 06/02/16 10:59 Last Admin: 04/06/16 08:12 Dose: 5 mg Duloxetine HCl (Cymbalta) 60 mg PO DAILY YUAN PRN Reason: Protocol Stop: 06/01/16 08:59 Last Admin: 04/05/16 08:35 Dose: 60 mg Gabapentin (Neurontin) 600 mg PO BID [facility] Stop: 06/01/16 08:59 Last Admin: 04/06/16 08:09 Dose: 600 mg Heparin Sodium (Porcine) (Heparin) 5,000 units SUBQ Q12H [facility] Stop: 05/31/16 20:59 Last Admin: 04/06/16 08:14 Dose: 5,000 units Hydromorphone HCl (Dilaudid) 1 mg IVP Q4HR PRN PRN Reason: Pain (Severe) Stop: 05/30/16 20:44 Last Admin: 04/06/16 08:14 Dose: 1 mg Sodium Chloride (Nacl 0.9%) 1,000 mls @ 100 mls/hr IV .Q10H [facility] Stop: 05/30/16 20:44 Last Admin: 04/05/16 07:37 Dose: 100 mls/hr Ceftriaxone Sodium 1 gm/ (Dextrose) 50 mls @ 100 mls/hr IV Q24H [facility] Stop: 05/30/16 21:29 Last Admin: 04/05/16 22:02 Dose: 100 mls/hr Metronidazole (Flagyl) 500 mg PO TID [facility] Stop: 04/09/16 18:00 Last Admin: 04/06/16 08:11 Dose: 500 mg Miscellaneous (Vte Chemical Prophylaxis Screen/ Admission) 1 ea [facility] PRN PRN PRN Reason: PROTOCOL Stop: 05/31/16 17:13 Ondansetron HCl (Zofran) 4 mg IV Q6H PRN PRN Reason: Nausea / Vomiting Stop: 05/31/16 16:00 Last Admin: 04/06/16 05:45 Dose: 4 mg Potassium Chloride (Klor-Con) 20 meq PO DAILY [facility] Stop: 06/01/16 08:59 Last Admin: 04/06/16 08:09 Dose: 20 meq Propranolol HCl (Inderal) 40 mg PO BID [facility] Stop: 06/02/16 10:58 Last Admin: 04/06/16 08:10 Dose: 40 mg Zolpidem Tartrate (Ambien) 10 mg PO HS PRN PRN Reason: Insomnia Stop: 05/31/16 22:18 Last Admin: 04/05/16 21:25 Dose: 10 mg General: Alert, Oriented x3, Cooperative, No acute distress HEENT: Atraumatic Neck: Supple Cardiovascular: Regular rate Lungs: Clear to auscultation Abdomen: Bowel sounds, Soft, Other (Tender at palpation in abdominal upper side ) Neurological: Normal gait Skin: Other Psych/Mental Status: Mental status NL Assessment/Plan - Assessment Assessment: Patient is awake, alert, calm, referring pain in right upper abdomen. Labs improving. BP in control. Patient will be discharge home. - Plan Plan: Patient will be discharge home. Appointment with PCP already done, to continue treatment as outpatient.
--- NOTE | 2016-04-06 21:24 | Discharge Summary ---
CHIEF COMPLAINT: Right upper abdominal pain. HISTORY OF PRESENT ILLNESS: This is the case of a 50-year-old white female who went to [facility] secondary to right upper abdominal pain. The patient was transferred from [facility] to [facility] to continue treatment. HOSPITAL COURSE AND TREATMENT: Then, this patient was admitted in the medical/surgical floor. Consult with GI was requested and the patient was started on ceftriaxone. After GI reviewed the case, they ___ doing MRCP was not good. GI doctor requested an MRI before to do the procedure. Due to the patient is obese and cannot be done a regular MRI and she needs an open MRI, they ____ to transfer the patient to the place where she got all the surgeries, and we called to the hospital to transfer the patient to an upper level of care, but due to the insurance situation, the patient was not transferred. During her hospitalization, she received ceftriaxone. A few days later, metronidazole was added to the treatment. She received pain management, and she was continued on old home medications. Due to the leukocytosis improvement, the case was discussed with the patient and she decided to go home and made an appointment with PCP in order to continue treatment, and in case the pain is back again, she will go to the hospital where she got all the surgeries. [employer] OPERATOR GARMENTS IN THIS CASE: Dr. Meek, Gastroenterology. CONDITION ON DISCHARGE: At the moment of the discharge, the patient was awake, alert, and in no acute distress. DISPOSITION: The patient is sent home to continue treatment with primary care physician. IMPRESSION: 1. Right upper abdominal pain. 2. Intestinal infection. 3. Obesity. 4. Depression. 5. Status post cholecystectomy. 6. Status post abdominal surgery. JOB# [id number]
== END 2016-04-06 13:20 | disposition home or self-care (01) | DRG 392 ==
LOC: MSI 19:55
PROVIDERS: ADMIT General Practice; ATTEND General Practice
DX: A09 Infectious gastroenteritis and colitis, unspecified (principal); K83.0 Cholangitis; Z68.42 Body mass index [BMI] 45.0-49.9, adult; R10.10 Upper abdominal pain, unspecified; E66.9 Obesity, unspecified; M54.9 Dorsalgia, unspecified; F32.9 Major depressive disorder, single episode, unspecified; Z88.2 Allergy status to sulfonamides; Z90.49 Acquired absence of other specified parts of digestive tract; Z98.890 Other specified postprocedural states
CPT/HCPCS: 36415-UA; 76700-TC; 80053-TC; 81001-TC; 82150-TC; 82948-90; 83690-TC; 85025-TC; 85610-TC; J0696; J1170; J1644; J2405; J7030; J7070; Z7610